=== PATIENT | female | born 1960 | race Caucasian/White ===

== ENCOUNTER 2020-03-02 03:05 | Outpatient (CLI) | payer BC, SELFPAY ==
[2020-03-02 07:59] LABS: Hemoglobin A1C 8.3 % (<5.7)
== END 2020-03-02 03:25 ==
DX: E11.9 Type 2 diabetes mellitus without complications (principal)
CPT/HCPCS: 36415; 83036

== ENCOUNTER 2022-12-26 06:40 | Observation (INO) | payer BC, SELFPAY ==
--- NOTE | 2022-12-26 07:00 | DI.CT_ITS ---
Exam(s) CT BRAIN NECK CTA EXAM: CT BRAIN NECK CTA CLINICAL HISTORY: L SIDED WEAKNESS,STROKE LIKE SYMPTOMS. TECHNIQUE: Imaging Protocol: Axial CT angiography was performed with multi-slice acquisition and mu lti-planar and/or 3D reconstructions. CONTRAST MATERIAL: Intravenous: Omnipaque 350 Contrast volume:80 cc COMPARISON: No exams were available for comparison FINDINGS: CTA Neck W: Aortic arch anatomy: The aortic arch anatomy is conventional and there is no significant stenosis at the origin of the great vessels off of the aortic arch. No intimal flap evident. Anterior circulation: Both common carotid arteries ascend with normal luminal diameters. At the level the carotid bulbs and proximal internal carotid arteries there is minimal if any signifi cant plaque without hemodynamically significant stenosis evident. The internal carotid arteries are patent in the upper neck although both are quite tortuous in the up per neck prior to entering the skull base-carotid canals Posterior circulation: Both vertebral arteries originate in conventional fashion off of the subclavian arteries and there is no obvious stenosis at the origin of the vertebral arteries. Both vertebral arteries are patent in the foramen transverse area. The right vertebral artery is dom inant. At the skull base the basilar artery is formed by contributions from both vertebral arteries, right l arger than left. Basilar artery is uniformly thin vessel. CTA Brain W: Anterior circulation: Both internal carotid arteries are patent in the skull base-carotid canals as well as within the cave rnous sinuses. The supraclinoid aspects of the ICAs are patent. Both A1 segments are patent as are the anterior cer ebral arteries and there is no evidence of aneurysm at the level of the anterior communicating artery . Both middle cerebral arteries are patent with no evidence of significant stenosis nor intraluminal th rombus. There also no aneurysms of these vessels. Posterior circulation: Thin basilar artery ascends and distally gives offs thin superior cerebellar and posterior cerebral a rteries. There are thin posterior communicating arteries evident on both sides the emxmml-ze-Rnbthu. There is no evidence of aneurysm at the tip of the basilar artery nor elsewhere in the uabryz-ac-Izff is. CT BRAIN: There is no evidence of intracranial hemorrhage, mass effect, or shift of midline structures. There are no extra-axial fluid collections. Ventricles are not enlarged or shifted. There are no ring enh ancing lesions in the brain and no abnormal meningeal enhancement. IMPRESSION: 1. Patent carotid arteries in the neck. No hemodynamically significant stenosis. However, both inte rnal carotid arteries are quite tortuous in the upper neck prior to entering the skull base-carotid c anals. 2. Patent vertebral arteries. No occlusion or dissection. 3. Patent intracranial arteries. Thin posterior circulation vessels which is probably developmental. 4. No ring enhancing lesions in the brain and no abnormal meningeal enhancement. No evidence of intr acranial hemorrhage. Discussed with ER physician RADIATION DOSE DELIVERED: Total DLP DATA REPOSITORY: All CT scans at this facility are submitted to the National Radiology Data Registry (NRDR) Dose Index Registry (DIR) with the [employer] (A[employer]). RADIATION OPTIMIZATION: All CT scans at this facility use at least one of these dose optimization te chniques: automated exposure control; mA and/or kV adjustment per patient size (includes targeted exa ms where dose is matched to clinical indication); or iterative reconstruction.
--- NOTE | 2022-12-26 08:45 | DI.MRI_ITS ---
Exam(s) MR BRAIN WO EXAM: MR BRAIN WO CLINICAL HISTORY: L arm weakness TECHNIQUE: Multiplanar multisequence MRI of the brain was performed. COMPARISON: No exams were available for comparison FINDINGS: CEREBRAL PARENCHYMA: There is no evidence of intracranial hemorrhage, mass effect, or shift of midline structures. There are no extra-axial fluid collections. Ventricles are not enlarged or shifted. There is no significant focal signal abnormality in the cerebellar hemispheres nor within the michael, m idbrain, and thalami. However, there is a small focus of white matter signal abnormality in the right parietal lobe. This also exhibits restricted diffusion on DWI and therefore consistent with acute ischemic event. This m easures approximately 7 x 5 mm. PITUITARY GLAND: No mass nor parasellar abnormality. No obvious abnormality in the cavernous sinuses. FLOW VOIDS: The expected flow void are noted. No evidence of obvious aneurysm nor obvious vascular ma lformation. PARANASAL SINUSES: The visualized paranasal sinuses appear unremarkable. No obvious finding ORBITS: No obvious findings. IMPRESSION: Findings are consistent small area of acute nonhemorrhagic infarct in the right parietal lobe. Area of restricted diffusion at this level measures approximately 7 x 5 mm. No significant mass effect at this time. Discussed by phone with ER physician and hospitalist DATA REPOSITORY:
--- NOTE | 2022-12-26 08:55 | W.EDPROG ---
Date of service: 12/26/22 Time of Service: 07:30 Medical Decision Making I received signout at 7 AM. This was during downtime and EMR was not available. Please see the paper record. I have seen and examined the patient. She developed left arm weakness last night at about 7:30 PM but went back to bed, she awoke this morning with continued left arm weakness and positive pronator drift on initial exam but with outside the window for thrombolytics. I have discussed the CT findings with the radiologist who sees no large vessel occlusion. The radiologist recommended a noncontrast MRI of the brain. I updated the patient and have ordered the MRI. Imaging Data Radiologic Study: Imaging: MRI (Noncontrast brain) Radiologist's impression: Findings are consistent small area of acute nonhemorrhagic infarct in the right parietal lobe. Area of restricted diffusion at this level measures approximately 7 x 5 mm. No significant mass effect at this time. Radiologic Study #2: Imaging: CT Scan (CT brain neck CTA) Radiologist's impression: Impression: 1. Patent carotid arteries in the neck. No hemodynamically significant stenosis. However, both internal carotid arteries are quite tortuous in the upper neck prior to entering the skull base?carotid canals. 2. Patent vertebral arteries. No occlusion or dissection. 3. Patent intracranial arteries. Thin posterior circulation vessels which is probably developmental. 4. No ring-enhancing lesions in the brain and no abnormal meningeal enhancement. No evidence of intracranial hemorrhage. Lab Data Lab results narrative: COVID flu and RSV are negative ECG Data Attestation: I personally reviewed and interpreted this ECG (s) as follows: Prior ECG tracings: available for review Exam Narrative Exam Narrative: The patient ambulates without assistance. The patient still has mild left upper extremity weakness and very mild left lower extremity weakness. I have updated the patient on the MRI findings and the plan to admit. The patient and her voiced understanding and agreement with the plan to admit. Narrative I have seen and examined the patient. I have discussed with Dr. Dorantes hospitalist who agreed to admit the patient with the MRI pending. 9:53 AM I have added a COVID/flu/RSV which is also pending. 10:43 AM the patient's MRI demonstrates a small area consistent with a occlusive CVA of the right middle cerebral artery, which corresponds to her left upper extremity weakness. I have notified the patient and her of the MRI findings Critical Care Time Critical Care Time Critical Care Time: Yes Total Critical Care Time: 57 Attestation: This includes time at the bedside, review of old records, review of radiographs and labs and discussion with hospitalist. Discharge Plan Disposition Patient Disposition: Admit to [facility] Discharge Details Clinical Impression: Acute cerebrovascular accident (CVA) due to occlusion of right middle cerebral artery, Acute left hemiparesis Primary Care Provider: [place],Local ED Provider: Debby Delgado Home Meds and New Rx's Prescriptions: No Action venlafaxine 150 MG capsule,extended release 24hr 225 mg PO DAILY diltiazem HCl [Cardizem] 120 MG tablet 120 mg PO DAILY lisinopril 5 MG tablet 5 mg PO DAILY metformin 500 MG tablet extended release 24 hr 500 mg PO DAILY aspirin 325 MG tablet 325 mg PO DAILY Patient Comments: stopped taking per pcp calcium carbonate [Calcium 600] 600 MG tablet 600 mg PO DAILY multivitamin with minerals [Hair,Skin and Nails] 1 EACH tablet 1 ea PO DAILY cholecalciferol (vitamin D3) [Vitamin D3] 400 UNIT tablet 2,000 unit PO DAILY vitamin B complex 1 EACH capsule 1 ea PO DAILY magnesium L-lactate [Magtab] 84 MG tablet extended release 64 mg PO DAILY fish oil-fat acid [id number] [[place] 3-6-9 Triple [place]] 1,200 MG capsule 1,200 mg PO DAILY hydrocodone-acetaminophen 1 TAB tablet 1 tab PO Q6H PRN Qty: 7 0RF Patient Comments: finished rx clindamycin HCl 300 MG capsule 300 mg PO QID Qty: 20 0RF Patient Comments: finished rx Discharge Data Discharge Physician: Debby Delgado
--- NOTE | 2022-12-26 09:00 | RT.EKG_ITS ---
APPROVED REPORT Exam: Resting ECG Reason for Exam: stroke symptoms Patient Location: E HR:64 bpm ECG Measurements Heart Rate 64 AXIS ID 172 P 40 QRSd 102 QRS -13 QT 424 T 9 QTc 438 Conclusion Gender not entered, assumed to be male for purpose of ECG interpretation Sinus rhythm...normal P axis, V-rate 60- 99 Inferior infarct, old...Q >35mS, II III aVF Patient is female, NSR, low voltage, LAD, No STEMI, no previous available for comparison.
[2022-12-26] MEDS: Aspirin 81 MG CHEW (09:06)
[2022-12-26] MEDS: Normal Saline - Diluent 50 ML VIAL IJ (09:20)
[2022-12-26] MEDS: Omnipaque 350 MG/ML 500 ML BTL-Imaging package IJ (09:22)
[2022-12-26 10:59] LABS: COVID-19 PCR Negative (Negative); Influenza A PCR Negative (Negative); Influenza B PCR Negative (Negative); RSV PCR Negative (Negative)
[2022-12-26 11:01] LABS: Source Nasopharynx
[2022-12-26 11:36] LABS: Bilirubin Negative (Negative); Blood Negative (Negative); Clarity Clear (Clear); Glucose >=1000 mg/dL (Negative); Ketones 15 mg/dL (Negative); Leukocyte Esterase Negative (Negative); METHADONE URINE SCREEN Negative (Negative); Nitrite Negative (Negative); Urobilinogen 0.2 mg/dL (Up to 0.2)
[2022-12-26 11:37] LABS: *AMPHETAMINES SCREEN URINE Negative (Negative); *BARBITURATES SCREEN URINE Negative (Negative); *BENZODIAZEPINES SCREEN URINE Negative (Negative); Cannabinoids THC Negative (Negative); Cocaine Screen,Urine Negative (Negative); INR 0.9 (0.9-1.1); OPIATES URINE SCREEN Negative (Negative); Prothrombin Time 9.3 sec (9.1-11.1); Tricyclic Antidepressants Negative (Negative)
[2022-12-26 11:38] LABS: Anion Gap 9.9 mmol/L (3-11); BUN 15 mg/dL (7-18); CO2 24.1 mmol/L (21.0-32.0); CREATININE 0.7 mg/dL (0.55-1.02); Calcium 9.7 mg/dL (8.5-10.1); Chloride 103 mmol/L (98-107); Estimated GFR 98.34 (mL/min/1.73m2); Glucose 316 mg/dL (74-106); Potassium 4.1 mmol/L (3.5-5.1); Sodium 137 mmol/L (136-145)
[2022-12-26 11:39] LABS: ETHANOL BLOOD < 3.0 mg/dL (<10); Troponin I < 50 ng/L (<or=60)
[2022-12-26 11:40] LABS: Absolute Basophil Count 0.05 10^3/uL (0.0-0.2); Absolute Lymphocyte Count 1.58 10^3/uL (1.2-3.4); Absolute Monocyte Count 0.44 10^3/uL (0.1-0.8); Absolute Neutrophil Count 4.44 10^3/uL (1.2-6.7); Basophils % 0.8; Eosinophils % 1.5; HCT 43.8 % (36.0-46.0); HGB 14.4 g/dL (11.2-15.7); Immature Grans % 0.8; Lymphocytes % 23.7; MCH 29.8 pg (27.0-33.0); MCHC 32.9 % (32.0-36.0); MCV 91 fL (80-95); MPV 9.7 fL (8.0-11.0); Monocytes % 6.6; Neutrophils % 66.6; Platelet Count 309 10^3/uL (130-400); RBC 4.83 10^6/uL (3.93-5.22); RDW 12.5 % (11.7-14.6); RDW-SD 41.5 fL; WBC 6.66 10^3/uL (4.4-10.8)
[2022-12-26 11:41] LABS: Abs Immature Grans 0.05 10^3/uL (0.0-0.06)
[2022-12-26 11:43] VITALS: BP 142/86; PULSE 61; RESP 18; TEMP 36.5
[2022-12-26 11:45] VITALS: O2SAT 98
--- NOTE | 2022-12-26 11:48 | HPE_ITS ---
Date of service: 12/26/22 Time of Service: 11:48 Assessment and Plan Assessment and plan (1) Acute cerebrovascular accident (CVA) due to occlusion of right middle cerebral artery: Status: Acute Assessment and plan: Cariac US/ Echo with bubble study PT OT Lipid panel Neuro consult: Recommndation as per Dr. Harris Continue ASA 325 mg PO daily No DAPT Lipitor 80 mg PO daily HGB A1C (2) Acute left hemiparesis: Status: Acute Assessment and plan: As above (3) On deep vein thrombosis (DVT) prophylaxis: Status: Acute Assessment and plan: Lovenox (4) Atrial fibrillation: Status: Chronic Assessment and plan: History of PAF from [facility] as per Neurologist Dr. Harris. Will try to retrieve records Patient denies PAF and stated that she has not been taking the Cardizem 120 listed in her records.Telemetry in place- SR (5) Diabetes: Status: Chronic Assessment and plan: Blood sugar AC and HS with insulin ss coverage BMP in AM (6) Hypertension: Status: Chronic Assessment and plan: Patient reporting not taking lisinopril for a long time . NO Rx at this time will evaluate to maintain SBP around 160 (7) Discharge planning issues: Status: Acute Assessment and plan: Not determined yet, CM will f/u History of Present Illness History of Present Illness Chief Complaint: left sided weakness Narrative: This is a 62 yo female with a medical history of atrial fibrillation, DM II and hypertension who presented to the ED at [facility] on 12/26 with left sided arm weakness starting on 12/25 at 19:30 with added left sided leg weakness developing this morning after she woke up. In the ED she was found to have a positive pronator drift but was outside of the window for thrombolytics. Her head CT and CTA neck showed no bleed and no acute lesions, the radiologist consulted by the ED physician found no large vessel occlussion and recommended noncontrast MRI of the brain which was ordered.The findings were consistent small area of acute nonhemorrhagic infarct in the right parietal lobe. Area of restricted diffusion at this level measures approximately 7 x 5 mm; without significant mass effect at this time. Lab values in the ED were unremarkable except for a glucose of 316, urine ketones 15. The patient received a total of 324 mg of oral aspirin. The hosptalist was contacted and the patient was admitted for evaluation left-sided hemiparesis, CVA Review of Systems All systems reviewed & are unremarkable except as noted in HPI and below Constitutional Constitutional: Denies body ache(s), Denies chills, Denies daytime sleepiness, Denies difficulty sleeping, Denies fatigue, Denies fever(s), Denies frequent falls, Denies malaise, Denies night sweats and Reports weakness Eyes Eyes: Denies blind spots, Denies blurry vision, Denies change in vision, Denies diplopia, Denies floaters, Denies loss of peripheral vision, Denies loss of vision, Denies other visual disturbances and Denies eye pain ENT Ears, Nose, Mouth, and Throat: Denies abnormal hearing, Denies change in voice, Denies dysphagia, Denies vertigo, Denies dizziness and Denies facial pain Cardiovascular Cardiovascular: Denies chest pain, Denies chest pain at rest, Denies chest pain with activity, Denies syncope, Reports leg edema, Denies palpitations and Denies dyspnea Respiratory Respiratory: Denies chest congestion, Denies cough, Denies hemoptysis and Denies dyspnea Gastrointestinal Gastrointestinal: Denies abdominal pain, Denies belching, Denies melena, Denies hematochezia, Denies change in bowel habits, Denies constipation and Denies dysphagia Genitourinary Genitourinary: Denies hematuria and Denies difficulty voiding Musculoskeletal Musculoskeletal: Reports abnormal gait, Reports muscle weakness and Reports other (Feels that the ground feels like grass under her left foot when ambulating) Integumentary/Breasts Skin/Breast: Reports system reviewed and no additional complaints, except as documented, Denies sores and Denies wounds Neurologic Neurologic: Denies abnormal hearing, Reports abnormal gait, Denies behavioral changes, Denies burning sensations, Denies confusion, Denies vertigo, Denies dizziness, Denies syncope, Denies frequent falls, Reports lack of coordination, Reports localized weakness, Denies loss of vision, Denies memory loss, Reports sensory deficit and Reports weakness Psychiatric Psychiatric: Denies behavioral changes, Denies confusion and Denies memory loss Endocrine Endocrine: Denies fatigue and Denies palpitations Hematologic/Lymphatic Hematologic/Lymphatic: Denies easy bleeding and Denies easy bruising PFSH All Active Problems (Updated 12/26/22 @ 18:50 by Rosanna Quinones APRN) Diabetes (Chronic) Discharge planning issues (Acute) Hypertension (Chronic) Atrial fibrillation (Chronic) On deep vein thrombosis (DVT) prophylaxis (Acute) Acute cerebrovascular accident (CVA) due to occlusion of right middle cerebral artery (Acute) Acute left hemiparesis (Acute) Social History Smoking/Tobacco Use Status: Never Smoking risk assessment performed?: Yes Drug use: Never Housing: house Additional Social history: see downtime paperwork Meds Allergies and Home Medications Allergies Allergy/AdvReac Type Severity Reaction Status Date / Time Penicillins Allergy Severe Anaphylaxsi Unverified 12/26/22 11:03 s oxycodone [Oxycodone] AdvReac Intermediate Nausea Unverified 12/26/22 11:03 avacodo Allergy Mild Skin Rash Uncoded 12/26/22 11:03 Home Medications Medication Instructions Recorded Confirmed Type empagliflozin 10 mg tablet 10 mg PO DAILY 12/26/22 12/26/22 History (Jardiance) venlafaxine 225 mg tablet,extended 225 mg PO DAILY 12/26/22 12/26/22 History release 24 hr Exam Narrative Exam Narrative: Constitutional The patient is lying in bed comfortable and cooperative during the interview. The the patient sits up at the edge of the bed The patient is well groomed without acute distress and has obese body habitus HENMT: Head is atraumatic, normocephalic, no lymphadenopathy. Facial structures with normal appearance- symmetrical, no droop in her smile Eyes: Well aligned, intact ROM Neck: Normal ROM, no meningeal signs Neuro:alert and oriented to self, person, place, time and situation. No neurological focal deficit, PERRLA 4-5 Chest:Chest is symmetrical and normal appearance Resp: Normal respiratory pattern, speaks in full sentences, unlabored breathing, clear lung bilaterally Cardio:Tele SR regular rhythm, S1, S2, no murmur, capillary refill<3 sec., bilateral radial and dorsalis pedis pulses are positive, palpable GI: Abdomen is not distended, soft and non tender, bowel sounds are present : Negative Costovertebral angle tenderness, no bladder distension Back/spine/Pelvis: No back tenderness, normal alignment Integumentary: No skin lesions or rash Extremities: strength 4/5 to left lower and upper extremities, registered nurse behavioral health L< registered nurse behavioral health R Psych: RASS 0, congruent mood and normal affect. Neuro Cranial Nerves: sense of smell intact, PERRL, accommodation normal, EOM intact bilaterally, no nystagmus, facial strength normal, tongue midline, gag reflex normal, hearing normal, able to rotate head bilaterally and able to elevate shoulders bilaterally Cognition: normal cognition Speech: speech normal Gait: normal gait Motor: strength 5/5 throughout (right side ) and no pronator drift Results Labs 12/26/22 07:05 12/26/22 07:05 Labs: Laboratory Results - last 24 hr 12/26/22 12/26/22 07:05 10:14 WBC 6.66 RBC 4.83 Hgb 14.4 Hct 43.8 MCV 91 MCH 29.8 MCHC 32.9 RDW 12.5 Plt Count 309 MPV 9.7 Immature Gran % 0.8 Neutrophils % 66.6 Lymphocytes % 23.7 Monocytes % 6.6 Eosinophils % 1.5 Basophils % 0.8 Nucleated RBC % 0.0 Absolute Neutrophils 4.44 Absolute Lymphocytes 1.58 Absolute Monocytes 0.44 Absolute Eosinophils 0.10 Absolute Basophils 0.05 PT 9.3 INR 0.9 APTT 24.0 Sodium 137 Potassium 4.1 Chloride 103 Carbon Dioxide 24.1 Anion Gap 9.9 BUN 15 Creatinine 0.7 Est GFR (CKD-EPI 2020) 98.34 Glucose 316 H Calcium 9.7 Magnesium 2.0 Troponin I < 50 Urine Color Yellow Urine Clarity Clear Urine pH 5.0 Ur Specific [place] 1.010 Urine Protein Negative Urine Ketones 15 H Urine Blood Negative Urine Nitrite Negative Urine Bilirubin Negative Urine Urobilinogen 0.2 Ur Leukocyte Esterase Negative Urine Glucose >=1000 H Urine Opiates Screen Negative Urine Methadone Screen Negative Ur Barbiturates Screen Negative Ur Tricyclics Screen Negative Ur Amphetamines Screen Negative U Benzodiazepines Scrn Negative Urine Cocaine Screen Negative Ur THC Screen Negative Ethyl Alcohol < 3.0 COVID-19 Source Nasopharynx SARS-CoV-2 (PCR) Negative Influenza Type A (PCR) Negative Influenza Type B (PCR) Negative RSV (PCR) Negative Last Vital Signs Temp 36.5 C 12/26/22 11:43 Pulse 61 12/26/22 11:43 Resp 18 12/26/22 11:43 BP 142/86 H 12/26/22 11:43 Time Spent Time spent with Patient: >75 minutes Time was spent: preparing to see the patient(eg.review tests), obtaining and/or reviewing separately otained hiistory, ordering medications,tests, procedures, referring, communicating with other health personal care aid, indepentently interpreting results, counseling the patient and care coordination
[2022-12-26] MEDS: Normal Saline Flush 10 ML SYR IVP (12:06)
[2022-12-26] MEDS: Atorvastatin 40 MG TAB 80 MG PO (12:06)
[2022-12-26 12:24] LABS: Calculated LDL 191 mg/dL (<100); Cholesterol 294 mg/dL (<200); HDL Cholesterol 70 mg/dL (40-60); Triglyceride 167 mg/dL (<150)
--- NOTE | 2022-12-26 12:57 | W.NEUROCONSU ---
Date of service: 12/26/22 Time of Service: 12:57 Assessment and Plan Assessment and plan (1) Atrial fibrillation: Status: Chronic (2) Stroke due to embolism of middle cerebral artery: Status: Acute (3) Acute left hemiparesis: Status: Acute Assessment and plan: Ms. Jensen is admitted with right front-parietal cortical stroke manifested by L arm>leg weakness, etiology most likely embolic given history of prior atrial fibrillation, but further work-up pending. Work-up: -Telemetry with 30 day extended playground monitor at discharge -A1c -Lipid panel Medications: -it is a very small stroke, but I think risk of bleeding is still there; so continue ASA 325mg daily; on 01/02/23, stop ASA and instead start apixaban 5mg BID; ADRs discussed with her, bleeding monitoring, trauma precautions, etc -atrovastatin 80mg daily for secondary stroke prevention Other: -Allow permissive hypertension -Physical therapy for leg weakness, gait training -Occupation therapy for upper extremity weakness, activities of daily living She should follow-up in the neurology clinic in 6-8 weeks. History of Present Illness History of Present Illness Chief Complaint: stroke Narrative: Handedness: right. Ms. Jensen is a 62 year-old with hypertension, hyperlipidemia, DM2, insomnia, prior atrial fibrillation. Last night 12/25/22, Ms. Jensen got up after laying down around 1930 at which she noted her left arm seemed weak. She thought that it was from laying on it and later went to bed. This am after waking, she noted the left arm was still weak and also noted slight weakness in the left leg. She had no numbness or speech changes. She presented to the [facility] ER and underwent the work-up as below. She was treated with 325mg PO aspirin. She is not on an anti-platelet at baseline. Per PCP records, last seen Nov 2021), she was supposed to be on a statin but has not been taking one. She was also started on atorvastatin 80mg daily. [place] living [place], she apparently was seen for emergent care in Feb 2012 for afib, presumably with RVR. Per prior records, she was converted with medications previously on diltiazem, metoprolol, magnesium, and coumadin. Her EKG here was in SR. Work-up: -MRI brain w/o (12/26/22): Small area of acute ischemia in the right fronto-parietal cortex. Empty sella. I reviewed these images personally and this is my personal interpretation. -CTA head/neck (12/26/22): Small distal basilar a and bilateral bomb loader - developmental?. tortuous bilateral ICAs. No significant findings. I reviewed these images personally and this is my personal interpretation. -TTE (12/26/22): EF 57%, no wall motion abnormalities. LA normal. +PFO. -LDL (12/26/22): 191 -A1c: pending Review of Systems All systems reviewed & are unremarkable except as noted in HPI and below PFSH All Active Problems (Updated 12/26/22 @ 21:02 by Dariela Garcia MD) Stroke due to embolism of middle cerebral artery (Acute) Diabetes (Chronic) Discharge planning issues (Acute) Hypertension (Chronic) Atrial fibrillation (Chronic) On deep vein thrombosis (DVT) prophylaxis (Acute) Acute cerebrovascular accident (CVA) due to occlusion of right middle cerebral artery (Acute) Acute left hemiparesis (Acute) Medical History (Updated 12/26/22 @ 21:02 by Dariela Garcia MD) Depression Insomnia Hyperlipemia Family History (Updated 12/26/22 @ 21:02 by Dariela Garcia MD) Other Adopted Social History Smoking/Tobacco Use Status: Never Smoking risk assessment performed?: Yes Drug use: Never Housing: house Additional Social history: see downtime paperwork Visit Medication and Allergies Active Medications Generic Name Dose Route Start Last Admin Trade Name Freq PRN Reason Stop Dose Admin Albuterol/Ipratropium 3 ml 12/26/22 09:52 Albuterol/Ipratropium 3 Ml Upd Vial UPD Q6H PRN PRN Aspirin 325 mg 12/27/22 08:30 Aspirin 325 Mg Tab PO DAILY BOBBI Atorvastatin Calcium 80 mg 12/27/22 20:00 Atorvastatin 40 Mg Tab PO QPM [facility] Docusate Sodium 100 mg 12/26/22 14:00 Docusate Sodium 100 Mg Cap PO TID [facility] Enoxaparin Sodium 40 mg 12/27/22 08:30 Enoxaparin 40 Mg/0.4 Ml Syr SC DAILY BOBBI IV Miscellaneous Supplies 1 each 12/26/22 10:00 Iv Access IV DIRECTED BOBBI Polyethylene Glycol 17 gm 12/26/22 09:52 Polyethylene Glycol 3350 17 Gm Packet PO DAILY PRN PRN Constipation Sodium Chloride 0 ml 12/26/22 09:52 12/26/22 12:06 Normal Saline Flush 10 Ml Syr IVP 10 ml PRN PRN Administration Venlafaxine HCl 225 mg 12/27/22 08:30 Venlafaxine 75 Mg Capcr PO DAILY BOBBI Allergies Penicillins Allergy (Severe, Unverified 12/26/22 11:03) Anaphylaxsis oxycodone [Oxycodone] Adverse Reaction (Intermediate, Unverified 12/26/22 11:03) Nausea avacodo Allergy (Mild, Uncoded 12/26/22 11:03) Skin Rash Exam Narrative Exam Narrative: Physical Exam: Gen: Patient of apparent stated age, NAD Head and face: no facial or cranial abnormalities Neck: Supple, no meningismus, no occipital tenderness CV: + S1, S2, RRR, no murmur Resp: CTA B/L Abd: soft, nontender, nondistended Ext: No edema. No clubbing or cyanosis. No bony deformity. Neuro Exam: Language: fluency, naming, repetition, and comprehension intact; Mental Status: AAOx3, current events intact, fund of knowledge intact; Speech: no dysarthria Cranial nerves: Funduscopy: not performed CN II: visual arriola intact CN III, IV, : extraocular movements intact, no nystagmus, pupils symmetric and reactive to light CN V: face sensation intact to LT and PP CN VII: no facial asymmetry noted CN VIII: hearing intact bilaterally CN IX, X: palate rises symmetrically CN XI: trapezius/SCM 5/5 bilaterally CN XII: protrudes tongue symmetrically Sensory: intact to LT, PP, vibration, and joint position in all extremities, absent Romberg Motor: bulk and tone intact. Fine motor movements slightly reduced on the left with subtle L pronator drift. Strength 5/5 throughout the RUE and RLE. Subtle weakness in the LUE and even less so in the LLE. Reflexes: 1+/hyporeflexic throughout at the biceps, triceps, brachioradialis, patella, and achilles tendons bilaterally; toes down going bilaterally; Coordination: FTN and HTS intact bilaterally Gait: not seen Results Last Vital Signs Temp 97.7 F 12/26/22 11:43 Pulse 61 12/26/22 11:43 Resp 18 12/26/22 11:43 BP 142/86 H 12/26/22 11:43 Pulse Ox 98 12/26/22 11:45 Labs 12/26/22 07:05 12/26/22 07:05 Labs: Laboratory Results - last 24 hr 12/26/22 12/26/22 07:05 10:14 WBC 6.66 RBC 4.83 Hgb 14.4 Hct 43.8 MCV 91 MCH 29.8 MCHC 32.9 RDW 12.5 Plt Count 309 MPV 9.7 Immature Gran % 0.8 Neutrophils % 66.6 Lymphocytes % 23.7 Monocytes % 6.6 Eosinophils % 1.5 Basophils % 0.8 Nucleated RBC % 0.0 Absolute Neutrophils 4.44 Absolute Lymphocytes 1.58 Absolute Monocytes 0.44 Absolute Eosinophils 0.10 Absolute Basophils 0.05 PT 9.3 INR 0.9 APTT 24.0 Sodium 137 Potassium 4.1 Chloride 103 Carbon Dioxide 24.1 Anion Gap 9.9 BUN 15 Creatinine 0.7 Est GFR (CKD-EPI 2020) 98.34 Glucose 316 H Calcium 9.7 Magnesium 2.0 Troponin I < 50 Triglycerides 167 H Total Cholesterol 294 H LDL Cholesterol, Calc 191 H HDL Cholesterol 70 Urine Color Yellow Urine Clarity Clear Urine pH 5.0 Ur Specific [place] 1.010 Urine Protein Negative Urine Ketones 15 H Urine Blood Negative Urine Nitrite Negative Urine Bilirubin Negative Urine Urobilinogen 0.2 Ur Leukocyte Esterase Negative Urine Glucose >=1000 H Urine Opiates Screen Negative Urine Methadone Screen Negative Ur Barbiturates Screen Negative Ur Tricyclics Screen Negative Ur Amphetamines Screen Negative U Benzodiazepines Scrn Negative Urine Cocaine Screen Negative Ur THC Screen Negative Ethyl Alcohol < 3.0 COVID-19 Source Nasopharynx SARS-CoV-2 (PCR) Negative Influenza Type A (PCR) Negative Influenza Type B (PCR) Negative RSV (PCR) Negative
--- NOTE | 2022-12-26 13:35 | IN_ITS ---
PT Notes Visit Reasons: Rule out CVA/TIA Physical Therapy Inpatient Initial Evaluation Date: 12/26/2022 Referring Doctor: Rosanna Quinones NP PT Orders: PT CONSULT: Fall Safety Assessment Precautions: Standard. Activity as tolerated. Patient Profile/Admitting Diagnosis: Mary is a 62-year-old right hand dominant female who presented to the ED on 01/05/2023 due to mild upper extremity and lower extremity weakness on the left side. Patient is admitted for management of acute cerebrovascular accident with a right middle cerebral artery affectation, acute left hemiparesis, AF, and hypertension. PMHX: All Active Problems (Updated 12/26/22 @ 11:50 by Rosanna Quinones APRN) Discharge planning issues (Acute) Hypertension (Chronic) Atrial fibrillation (Chronic) On deep vein thrombosis (DVT) prophylaxis (Acute) Acute cerebrovascular accident (CVA) due to occlusion of right middle cerebral artery (Acute) Acute left hemiparesis (Acute) Social History/Home Situation: Lives with in a private home with 3 steps to enter with rails on both sides. 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 Independent with all aspects of ADLs prior to admission. Equipment Owned/DME: None Subjective: Feels that weakness in her L upper and lower extremities are starting to resol ve. Reports earlier today that her left leg felt spongy but issue is starting to minimize. Denies headache, chest pain, and lightheadedness throughout session. Has had no falls. Did complain of left knee pain with walking which she tattes may be due to an arthritic condition which she has had prior to coming here. Reported some minimal shortness of breath that resolved with rest. Objective: General Observation: Seated at edge of bed. No lines. Mental Status: Alert and oriented as to person, place, time, and purpose. Able to pay attention, focus, and respond appropriately. Pain: Denies Vital Signs: Closely monitored by nursing staff ROM: Right Upper Extremity: Shoulder Flexion WFL. Shoulder abduction WFL. Elbow flexion WFL. Wrist flexion WFL. Functional opening and closing of hand WFL. Left Upper Extremity: Shoulder Flexion WFL. Shoulder abduction WFL. Elbow flexion WFL. Wrist flexion WFL. Functional opening and closing of hand WFL. Right Lower Extremity: Hip flexion WFL. Hip abduction WFL. Knee flexion WFL. Ankle dorsiflexion WFL. Ankle plantarflexion WFL. Left Lower Extremity: Hip flexion WFL. Hip abduction WFL. Knee flexion WFL. Ankle dorsiflexion WFL. Ankle plantarflexion WFL. Strength: Right Upper Extremity: Shoulder flexors 5/5. Shoulder abductors 5/5. Elbow flexors 5/5. Elbow extensors 5/5. Anthropometrist strong. Left Upper Extremity: Shoulder flexors 4/5. Shoulder abductors 4/5. Elbow flexors 4/5. Elbow extensors 4/5. Anthropometrist relatively weaker thna the R. Right Lower Extremity: Hip flexors 5/5. Hip abductors 5/5. Knee flexors 5/5. Knee extensors 5/5. Ankle dorsiflexors 5/5. Ankle plantarflexors 5/5. Left Lower Extremity: Hip flexors 4/5. Hip abductors 4/5. Knee flexors 4/5. Knee extensors 4/5. Ankle dorsiflexors 4/5. Ankle plantarflexors 4/5. Bed Mobility/Transfers: Rolling independent Supine to sit independent Sit to supine independent Sit to stand independent Stand to sit independent Gait: Facilitated safe and correct performance of level surface ambulation covering a distance of 350 feet with step through heel toe gait pattern on B LE. Supervision only. Noted minimal shortness of breath at end of activity. With vital signs of 133 over 87 mmHg, heart rate of 110 bpm, and oxygen saturation of 91% on RA. No path deviation. Patient reported at baseline ability to walk. No report of visual limitations throughout the walk. Stairs: Guided patient with safe and correct negotiation of 6 x 4-inch steps and 4 x 6- inch steps while holding onto B rails with [id number] pattern with no need for any physical assistance. Supervision only. Balance: Static Sitting: Normal Dynamic Sitting: Normal Static Standing: Good Dynamic Standing: Good Special Tests: Mobility Limitations Standardized Measure [facility]-P[facility] 6 clicks Basic Mobility Inpatient Short Form: Raw Score: 24 CMS Score: 0% deficit Romberg Test: Negative 4-Stage balance Test: Feet together 10 seconds Semitandem R foot leading 10 seconds Semitandem L foot leading 10 seconds Full tandem 5 seconds One-legged stance 5 seconds Informed Consent/Education: Patient was instructed in purpose of PT consult and plan of care. Agreeable to proceed with established PT POC to achieve personal goals. ASSESSMENT: L UE/LE hemiparesis that did not greatly affect ability perform mobility ADLs for this assessment. Balance mildly impaired but does not need use of assistive device. Safety awareness intact. Patient presents with clinical signs and symptoms consistent with current/admitting diagnoses that have resulted to mobility limitations, gait instability, generalized weakness, and overall ADL decline as demonstrated by the following impairment level findings: 1. Decreased strength to L UE/ LE major muscle groups 2. Impaired standing balance Impairments are contributing to the following functional limitations: 1. Increased completion time for mobility ADL performance Patient is assessed as a 57107 moderate complexity based on the following: History: 62-year-old female with past medical history as indicated above Examination: Demonstrable impairment in strength, balance, and mobility level with underlying impairments and functional limitations as exhibited above as well as deficit score of 0% utilizing the [facility] Mobility Inpatient Short Form Presentation: Evolving Decision Makin moderate complexity Goals: Goals X1 week 1. Independent gait on level surface with use of no AD for at least 1000 feet without report of pain nor dyspnea 2. Independent stair negotiation while holding onto B rails for at least 3 steps without report of pain nor dyspnea 3. Independent with home exercise program 4. Normal static and dynamic standing balance/tolerance Plan of Care/Treatment Plan: 1-2x/day, 7 days/week x 1 week. Plan of care has been reviewed with the [facility]ION[facility] TRANSFER LIAISON providing the service under Physical Therapy direction. Initiate Physical Therapy intervention for pain management as needed, strengthening, bed mobility, transfers, gait, stairs, balance training, and use of assistive device. DISCHARGE RECOMMENDATIONS: [X] Home with no service. Home when medically cleared by hospitalist. [] Home with services [specify] [] Home with outpatient PT [] [] SNF for continued rehabilitation [] [] Nursing Home Care [] [] SNF versus LTC based on ability to participate and progress [] TREATMENT CODE/TIME: 47866 x 25 minutes for 1 unit beginning at 13:35 PM. Thank you for the opportunity to participate in the care of this patient. Trista Soto PT, DPT, CLT [facility] [place], [place]
[2022-12-26] MEDS: Docusate Sodium 100 MG CAP PO (15:11)
[2022-12-26 15:18] VITALS: BP 129/77; PULSE 69; RESP 20; TEMP 36.7; O2SAT 93
--- NOTE | 2022-12-26 16:54 | NUR.NOTE ---
Nursing Note:this pt was admitted during [facility] downtime, please look in paper charts for any missing information
[2022-12-26 19:48] VITALS: BP 148/81; PULSE 66; RESP 18; TEMP 37; O2SAT 96
[2022-12-27] VITALS (7 sets, daily range): BP systolic 114–142; BP diastolic 73–88; PULSE 64–106; RESP 16–18; TEMP 36.3–37.2; O2SAT 93–95
[2022-12-27 06:03] LABS: Hemoglobin A1C > 13.0 % (<5.7)
[2022-12-27 07:56] LABS: Abs Immature Grans 0.02 10^3/uL (0.0-0.06); Absolute Basophil Count 0.04 10^3/uL (0.0-0.2); Absolute Eosinophil Count 0.11 10^3/uL (0.0-0.7); Absolute Lymphocyte Count 1.33 10^3/uL (1.2-3.4); Absolute Monocyte Count 0.34 10^3/uL (0.1-0.8); Absolute Neutrophil Count 3.39 10^3/uL (1.2-6.7); Basophils % 0.8; Eosinophils % 2.1; HCT 44.1 % (36.0-46.0); HGB 14.3 g/dL (11.2-15.7); Immature Grans % 0.4; Lymphocytes % 25.4; MCH 29.7 pg (27.0-33.0); MCHC 32.4 % (32.0-36.0); MCV 92 fL (80-95); MPV 9.9 fL (8.0-11.0); Monocytes % 6.5; Neutrophils % 64.8; Platelet Count 292 10^3/uL (130-400); RBC 4.82 10^6/uL (3.93-5.22); RDW 12.6 % (11.7-14.6); RDW-SD 42.1 fL; WBC 5.23 10^3/uL (4.4-10.8)
[2022-12-27 08:13] LABS: Anion Gap 12.2 mmol/L (3-11); BUN 15 mg/dL (7-18); CO2 24.8 mmol/L (21.0-32.0); CREATININE 0.8 mg/dL (0.55-1.02); Calcium 9.6 mg/dL (8.5-10.1); Chloride 104 mmol/L (98-107); Estimated GFR 83.78 (mL/min/1.73m2); Glucose 261 mg/dL (74-106); Magnesium 2.2 mg/dL (1.8-2.4); Potassium 4.3 mmol/L (3.5-5.1); Sodium 141 mmol/L (136-145)
[2022-12-27] MEDS: Insulin Aspart 300 UNITS/3 ML PEN SC ×3 (08:42→17:03)
[2022-12-27] MEDS: Venlafaxine 75 MG CAPCR 225 MG PO (08:44)
[2022-12-27] MEDS: Empaglifozin 10 MG TAB PO (08:44)
[2022-12-27] MEDS: Aspirin 325 MG TAB PO (08:44)
[2022-12-27] MEDS: Docusate Sodium 100 MG CAP PO (08:45)
--- NOTE | 2022-12-27 09:45 | W.PM.PROGNOT ---
Date of Service Date of service: 12/27/22 Time of Service: 09:45 Assessment and Plan Assessment and plan (1) Acute cerebrovascular accident (CVA) due to occlusion of right middle cerebral artery: Status: Acute Assessment and plan: Cariac US/ Echo with bubble study: Questionable ASD or patent foramen oval , but history of A-Fib most concerning for ischemic stroke PT: No home service at discharge.Normal static and dynamic standing balance/tolerance OT: Lipid panel Neuro consult: Recommndation as per Dr. Harris Continue ASA 325 mg PO daily No DAPT Lipitor 80 mg PO daily HGB A1C 13.0 , DM consult in place (2) Acute left hemiparesis: Status: Acute Assessment and plan: As above but improving (3) On deep vein thrombosis (DVT) prophylaxis: Status: Acute Assessment and plan: Lovenox (4) Atrial fibrillation: Status: Chronic Assessment and plan: History of PAF from [facility] as per Neurologist Dr. Harris. Will try to retrieve records Patient denies PAF and stated that she has not been taking the Cardizem 120 listed in her records.Telemetry in place- SR Telemetry in NSR (5) Diabetes: Status: Chronic Assessment and plan: Continue Blood sugar AC and HS with insulin ss coverage, A1C >13, DM consult in progress. Glucs 222-275 BMP in AM (6) Hypertension: Status: Chronic Assessment and plan: Patient reporting not taking lisinopril for a long time . NO Rx at this time will evaluate to maintain SBP around 160 BP remains controlled (7) Discharge planning issues: Status: Acute Assessment and plan: Not determined yet, CM will f/u Subjective Subjective Patient reports: no new complaints, feels better, tolerating liquids well, tolerating a regular diet, voiding w/o difficulty, flatus, bowel movement and afebrile; denies diarrhea, blood in stool, nausea, vomiting or shortness of breath Exam Narrative Exam Narrative: Constitutional The patient is lying in bed comfortable and cooperative during the interview. The the patient sits up at the edge of the bed The patient is well groomed without acute distress and has obese body habitus HENMT: Head is normocephalic. Facial structures with normal appearance- symmetrical, no droop in her smile Eyes: Well aligned, intact ROM Neck: Normal ROM, no meningeal signs Neuro:alert and oriented to self, person, place, time and situation. No neurological focal deficit, PERRLA 4-5 Chest:Chest is symmetrical and normal appearance Resp: Normal respiratory pattern, speaks in full sentences, unlabored breathing, clear lung bilaterally Cardio:Tele SR regular rhythm, S1, S2, no murmur, capillary refill<3 sec., bilateral radial and dorsalis pedis pulses are positive, palpable GI: Abdomen is not distended, soft and non tender, bowel sounds are present : Negative Costovertebral angle tenderness, no bladder distension Back/spine/Pelvis: No back tenderness, normal alignment Integumentary: No skin lesions or rash Extremities: strength 4/5 to left lower and upper extremities, 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 Neuro Cranial Nerves: sense of smell intact, PERRL, accommodation normal, EOM intact bilaterally, no nystagmus, facial strength normal, tongue midline, gag reflex normal, hearing normal, able to rotate head bilaterally and able to elevate shoulders bilaterally Cognition: normal cognition Speech: speech normal Gait: normal gait Motor: strength 5/5 throughout (right side ) and no pronator drift Other: No further weakness to left leg and increased strength noticed to left upper ext. Objective Last Vital Signs Temp 36.5 C 12/27/22 07:49 Pulse 76 12/27/22 07:49 Resp 18 12/27/22 07:49 BP 127/76 12/27/22 07:49 Pulse Ox 94 12/27/22 07:49 Laboratory Results - last 24 hr 12/26/22 12/26/22 12/27/22 07:05 10:14 05:10 WBC 6.66 RBC 4.83 Hgb 14.4 Hct 43.8 MCV 91 MCH 29.8 MCHC 32.9 RDW 12.5 Plt Count 309 MPV 9.7 Immature Gran % 0.8 Neutrophils % 66.6 Lymphocytes % 23.7 Monocytes % 6.6 Eosinophils % 1.5 Basophils % 0.8 Nucleated RBC % 0.0 Absolute Neutrophils 4.44 Absolute Lymphocytes 1.58 Absolute Monocytes 0.44 Absolute Eosinophils 0.10 Absolute Basophils 0.05 PT 9.3 INR 0.9 APTT 24.0 Sodium 137 Potassium 4.1 Chloride 103 Carbon Dioxide 24.1 Anion Gap 9.9 BUN 15 Creatinine 0.7 Est GFR (CKD-EPI 2020) 98.34 Glucose 316 H Hemoglobin A1c Cancelled > 13.0 H Calcium 9.7 Magnesium 2.0 Troponin I < 50 Triglycerides 167 H Total Cholesterol 294 H LDL Cholesterol, Calc 191 H HDL Cholesterol 70 Urine Color Yellow Urine Clarity Clear Urine pH 5.0 Ur Specific [place] 1.010 Urine Protein Negative Urine Ketones 15 H Urine Blood Negative Urine Nitrite Negative Urine Bilirubin Negative Urine Urobilinogen 0.2 Ur Leukocyte Esterase Negative Urine Glucose >=1000 H Urine Opiates Screen Negative Urine Methadone Screen Negative Ur Barbiturates Screen Negative Ur Tricyclics Screen Negative Ur Amphetamines Screen Negative U Benzodiazepines Scrn Negative Urine Cocaine Screen Negative Ur THC Screen Negative Ethyl Alcohol < 3.0 COVID-19 Source Nasopharynx SARS-CoV-2 (PCR) Negative Influenza Type A (PCR) Negative Influenza Type B (PCR) Negative RSV (PCR) Negative 12/27/22 07:15 WBC 5.23 RBC 4.82 Hgb 14.3 Hct 44.1 MCV 92 MCH 29.7 MCHC 32.4 RDW 12.6 Plt Count 292 MPV 9.9 Immature Gran % 0.4 Neutrophils % 64.8 Lymphocytes % 25.4 Monocytes % 6.5 Eosinophils % 2.1 Basophils % 0.8 Nucleated RBC % 0.0 Absolute Neutrophils 3.39 Absolute Lymphocytes 1.33 Absolute Monocytes 0.34 Absolute Eosinophils 0.11 Absolute Basophils 0.04 PT INR APTT Sodium 141 Potassium 4.3 Chloride 104 Carbon Dioxide 24.8 Anion Gap 12.2 H BUN 15 Creatinine 0.8 Est GFR (CKD-EPI 2020) 83.78 Glucose 261 H Hemoglobin A1c Calcium 9.6 Magnesium 2.2 Troponin I Triglycerides Total Cholesterol LDL Cholesterol, Calc HDL Cholesterol Urine Color Urine Clarity Urine pH Ur Specific [place] Urine Protein Urine Ketones Urine Blood Urine Nitrite Urine Bilirubin Urine Urobilinogen Ur Leukocyte Esterase Urine Glucose Urine Opiates Screen Urine Methadone Screen Ur Barbiturates Screen Ur Tricyclics Screen Ur Amphetamines Screen U Benzodiazepines Scrn Urine Cocaine Screen Ur THC Screen Ethyl Alcohol COVID-19 Source SARS-CoV-2 (PCR) Influenza Type A (PCR) Influenza Type B (PCR) RSV (PCR) Time Spent with Patient Time Spent with Patient: >50 minutes Time was spent: preparing to see the patient(eg.review tests), ordering medications,tests, procedures, referring, communicating with other health manager intensive care unit, indepentently interpreting results, counseling the patient and care coordination
[2022-12-27] MEDS: Enoxaparin 40 MG/0.4 ML SYR SC (10:11)
--- NOTE | 2022-12-27 10:41 | PDOC.CMIN ---
Date of service: 12/27/22 Time of Service: 10:41 Care Management Initial Assmt Initial Assessment REASON FOR HOSPITALIZATION:: CVA PREVIOUS FUNCTIONAL STATUS/SOCIAL/FAMILY SUPPORTS:: Camelia lives in [place] with her Awais. They do not have any children but do have 2 dogs. 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 She shared that she has worked in a similar capacity in other camps throughout the [facility] for the past 30 years. Camelia is independent at baseline and does not receive any community services. CURRENT FUNCTIONAL STATUS:: Camelia was sitting up in bed visiting with her Awais when CM met with her. She was very pleasant and engaged easily with CM. Camelia informed CM that she is feeling much better. She was able to ambulate without any assistance and shared that her arm feels stronger today. She verbalized that she would like to be discharged home. The provider has indicated that Camelia would likely be discharged tomorrow. ADVANCE DIRECTIVES:: none Has patient been provided with info about the portal/API?: Yes Did the patient sign up for the portal?: No CODE STATUS:: Full Code INSURANCE COVERAGE / FINANCIAL ISSUES:: BC/BS out of state CURRENT HOME/COMMUNITY SERVICES/EQUIPMENT:: none PRIMARY CARE PHYSICIAN:: Howie Sampson at the [facility] ([facility] in [place] POTENTIAL DISCHARGE NEEDS:: establish with new PCP PATIENT/FAMILY EDUCATION NEEDS:: Review of discharge instructions, activity, limitations, follow up plan, discuss Ask Me Three TRANSPORTATION:: via private vehicle with family PLAN:: Anticipate Camelia will be discharged home with no new services. She will follow up with neurology and cardiology and establish with a new PCP. She will transport home with her via private vehicle,. PFSH All Active Problems (Updated 12/26/22 @ 21:02 by Dariela Garcia MD) Stroke due to embolism of middle cerebral artery (Acute) Diabetes (Chronic) Discharge planning issues (Acute) Hypertension (Chronic) Atrial fibrillation (Chronic) On deep vein thrombosis (DVT) prophylaxis (Acute) Acute cerebrovascular accident (CVA) due to occlusion of right middle cerebral artery (Acute) Acute left hemiparesis (Acute) Medical History (Updated 12/26/22 @ 21:02 by Dariela Garcia MD) Depression Insomnia Hyperlipemia Family History (Updated 12/26/22 @ 21:02 by Dariela Garcia MD) Other Adopted Social History Smoking/Tobacco Use Status: Never Smoking risk assessment performed?: Yes Drug use: Never Housing: house Additional Social history: see downtime paperwork
--- NOTE | 2022-12-27 10:56 | PT.INTREAT ---
Date of service: 12/27/22 Time of Service: 10:44 PT Notes Visit Reasons: Rule out CVA/TIA Inpatient Physical Therapy Treatment Note [facility] Date: 12/27/22 PRECAUTIONS: Fall, standard, activity as tolerated. SUBJECTIVE: Patient asleep when this clinician enters. Does not respond to her name, wakes easily to light touch on dorsum of right hand. Reports feeling good and also that she feels better today than she did yesterday. OBJECTIVE: Supine in bed, dressed in hospital gown and fuzzy pajama pants. Agreeable to therapy. ? PAIN: none reported. VITALS: monitored by nursing staff. ? ? ? BED MOBILITY/TRANSFERS? Rolling L/R: independent Supine-sit: independent ? Sit-supine: independent ? Sit-stand: independent ? Stand-sit: independent ? Bed-Chair: independent ? Chair-bed: independent ? Therapeutic Exercises ([id number]): Direct one-on-one instruction in therapeutic exercises to develop strength, endurance, range of motion and flexibility. Ambulation ? Assistive Device: none ? Weight bearing: full Assist: SBA ? Distance:? 1200 feet ? Deviation: Patient walks briskly, no c/o pain or dyspnea. Good, symmetric step length, good heel strike, good toe off, no path deviation. Reduced arm swing. ? Provided skilled instruction in proper exercise performance Provided skilled manual cues to facilitate proper muscle recruitment and/or form. ASSESSMENT:? Patient tolerates therapy well, states at end of treatment that she feels great. Patient declines to do stairs, stating that she did them with the other lady yesterday. PLAN: Continue global strengthening per plan of care until patient is medically cleared for discharge. TREATMENT CODE/TIME: 11 minutes beginning at 10:44
--- NOTE | 2022-12-27 16:01 | DM INPTCON_ITS ---
Date of service: 12/27/22 Time of Service: 16:13 Diabetes Inpatient Consult Reason for Visit: routine consult - Diabetes Education DESCRIPTION/ASSESSMENT: Ms Jensen is a 62yo female admitted with acute CVA. PMH includes Diabetes, HTN DVT. current estimated nutrition needs : 1831kcals (MSJx1.2AF), 79g protein (1.2g/kg ABW), 1831mL fluid (1mL/required kcal) Currently ordered for heart healthy diet with normal consistencies. Intake good during admission. Denies any concerns with N/V/C/D. glucose sticks ordered ACHS and on sensitive sliding scale of insulin aspart for meals. Current A1C>13 and historically has been very high in her chart. Pt denies glucose monitoring at home and says she doesn't count carbohydrates, just tried to eat sensibly. Her (also with diabetes) does most of the cooking (search director at [employer]). FBG this morning was 261 and yesterday was 316. at meals, glucose has not been below 190. INTERVENTION: Will add consistent CHO to diet order to help manage glucose levels. Offered diabetes educatioan on her specific needs and CHO amounts to aim for - pt declined at this time but did take my contact info should she and her become interested in diabetes mgt visits. Would recommend 10 units of insulin glargine to help bring down chronic hyperglycemia and transition to moderate SS of insulin aspart at meals. PLAN: will monitor labs, wt, intake, and interest in diabetes education while admitted. Time Spent in Nutritional Counseling and Treatment: 15 minutes
--- NOTE | 2022-12-27 16:14 | CHAPLAIN ---
Macie was in bed when I visited. She was very pleasant, invited me to sit down, and easily engaged in a conversation. Macie found her left arm was working and thought she'd slept on it funny and the next day had difficult with her left leg and so came to the ED. She said she's had a lot tests, but has been given permission to fly later this month to visit her brother in [place] and she was relieved about that. 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 Her works at [employer], and his supervisor chlorine liquefaction, Rev. Rome Yadav from the [employer] has called Macie. She seems to be well supported by her . Macie is from [place] and is strong [employer] football fan.
[2022-12-27] MEDS: Atorvastatin 40 MG TAB 80 MG PO (19:52)
[2022-12-28 03:44] VITALS: BP 118/72; PULSE 74; RESP 18; TEMP 36.3; O2SAT 97
[2022-12-28 07:19] VITALS: BP 118/79; PULSE 76; RESP 18; TEMP 36.6; O2SAT 97
[2022-12-28] MEDS: Venlafaxine 75 MG CAPCR 225 MG PO (07:34)
[2022-12-28] MEDS: Enoxaparin 40 MG/0.4 ML SYR SC (07:35)
[2022-12-28] MEDS: Normal Saline Flush 10 ML SYR IVP (07:35)
[2022-12-28] MEDS: Empaglifozin 10 MG TAB PO (07:35)
[2022-12-28] MEDS: Insulin Aspart 300 UNITS/3 ML PEN SC (07:50)
[2022-12-28] MEDS: Aspirin 325 MG TAB PO (08:23)
--- NOTE | 2022-12-28 08:56 | W.PM.DS.N ---
Date of service: 12/28/22 Time of Service: 08:58 DS: Diagnosis Discharge Diagnosis (1) Acute cerebrovascular accident (CVA) due to occlusion of right middle cerebral artery: Status: Acute (2) Acute left hemiparesis: Status: Acute (3) On deep vein thrombosis (DVT) prophylaxis: Status: Acute (4) Atrial fibrillation: Status: Chronic (5) Diabetes: Status: Chronic (6) Hypertension: Status: Chronic (7) Discharge planning issues: Status: Acute Discharge Plan Disposition Patient Disposition: Home Condition: Improving Discharge Details Reason For Visit: Rule out CVA/TIA Admit Date/Time: 12/26/22 10:27 Admit Provider: Landon Collins Attending Provider: Landon Collins [facility] Hospital Course: This is a 62 years old female with a medical history of atrial fibrillation, DM II and hypertension who presented to the ED at [facility] on 12/26 with left sided arm weakness starting on 12/25 at 19:30 with added left sided leg weakness developing this morning after she woke up. In the ED she was found to have a positive pronator drift but was outside of the window for thrombolytic. Her head CT and CTA neck showed no bleed and no acute lesions, the radiologist consulted by the ED physician found no large vessel occlusion and recommended non-contrast MRI of the brain, which was ordered. The findings were consistent small area of acute non-hemorrhagic infarct in the right parietal lobe with an embolic event to a distal right MCA branch. Area of restricted diffusion at this level measured approximately 7 x 5 mm; without significant mass effect at the time. Lab values in the ED were unremarkable except for a glucose of 316, urine ketones 15. The patient received a total of 324 mg of oral aspirin. The hospitalist was contacted and the patient was admitted for evaluation left-sided hemiparesis, CVA. During her stay, the patient received Aspirin 325, Atorvastatin, telemetry monitoring. We initiated a neurology consultation with Dr. Harris with the following recommendations: telemetry with 30 day extended director of cardiac rehabilitation at discharge, hemoglobin A1C level, lipid panel, aspirin 325mg orally daily. On 01/02/23, the patient will stop Aspirin and start Apixaban 5mg orally twice a day. The provider also discussed adverse drug reactions, bleeding monitoring and trauma precautions with the patient. The patient will have a follow-up in the neurology clinic in 6-8 week. Permissive hypertension was recommended the patient?s blood pressure remained 114/79 to 148/81.The patient was on telemetry and remains in sinus rhythm HR 61 to 106.A1C was over 13, Triglycerides 167, total cholesterol 294, LDL 191 and LDH 70. The patient received insulin aspart as per a sensitive sliding scale to mange her blood surgars in the hospital. We considered metformin but she could not tolerate this on a previous trial due to gastrointestinal side effect as per patient report. We will increase her jardiance to 25 mg from the 10 mg dose that she usually takes at home. The patient has an appointment on the 12/30/22 with her PCP for further management of her conditions, including her diabetes. Physical therapy worked with the patient and did not recommend home follow-up, as the patient stroke symptoms resolved. On the day of discharge, the patient has no further weakness in her left extremities on exam. The patient will continue aspirin 325 mg oral until the 01/02/2023, then start taking Apixaban 5 mg orally twice a day on 01/02/2023. The patient will continue atorvastatin 80 mg orally daily in the afternoon to reduce the risk of secondary stroke. Follow-ups with primary care within 1-2 weeks and neurology are required. Home Meds and New Rx's Prescriptions: New Eliquis 5 mg tablet 5 mg PO BID MDD Start on 01/02/2023 Qty: 60 0RF aspirin 325 mg Tablet 325 mg PO DAILY Qty: 30 0RF atorvastatin 40 mg Tablet 80 mg PO QPM Qty: 60 0RF Jardiance 25 mg tablet 25 mg PO DAILY Qty: 30 0RF Continued venlafaxine 225 mg tablet extended release 24hr 225 mg PO DAILY Discontinued Jardiance 10 mg tablet 10 mg PO DAILY Discharge Instructions Stand Alone Forms: Nursing Discharge Form Referrals: Storm Martinez [ NON-[facility] STAFF PHYSICIAN] - (Please call Friday to make a follow up appointment in 1-2 weeks. ) Dariela Garcia MD [ [facility] STAFF PHYSICIAN] - 02/03/23 9:00 am (This is a 62 years old female with a medical history of atrial fibrillation, DM II and hypertension who presented to the ED at [facility] on 12/26 with left sided arm weakness starting on 11/08 at 19:30 with added left sided leg weakness developing this morning after she woke up. In the ED she was found to have a positive pronator drift but was outside of the window for thrombolytic. Her head CT and CTA neck showed no bleed and no acute lesions, the radiologist consulted by the ED physician found no large vessel occlusion and recommended non-contrast MRI of the brain, which was ordered. The findings were consistent small area of acute non-hemorrhagic infarct in the right parietal lobe with an embolic event to a distal right MCA branch. Area of restricted diffusion at this level measured approximately 7 x 5 mm; without significant mass effect at the time. During her stay, the patient received Aspirin 325, Atorvastatin, telemetry monitoring. We initiated a neurology consultation with Dr. Harris with the following recommendations: telemetry with 30 day extended director of cardiac rehabilitation at discharge, hemoglobin A1C level, lipid panel, aspirin 325mg orally daily. On 01/02/23, the patient will stop Aspirin and start Apixaban 5mg orally twice a day. The provider also discussed adverse drug reactions, bleeding monitoring and trauma precautions with the patient. The patient will have a follow-up in the neurology clinic in 6-8 week. Permissive hypertension was recommended the patient?s blood pressure remained 114/79 to 148/81.The patient was on telemetry and remains in sinus rhythm HR 61 to 106.) Activity:: Activity as Tolerated Equipment/Supplies:: No Equipment Needed Diet:: Diabetes consistent/ heart healthy Discharge Orders Discharge Orders: Discharge Order (Routine); Ordered 12/28/22 Ordered By: Rosanna Quinones DS: Summary Time Spent with Patient providing and/or coordinating discharge services: Greater than 30 minutes Status at Discharge Functional status at discharge: bed bound Overall status at discharge: patient is back to baseline Mental Status: mental status grossly normal Speech and Movement: speech and movement normal Mood: congruent mood Affect: normal affect Exam Narrative Exam Narrative: Constitutional The patient is lying in bed comfortable and cooperative during the interview. The the patient sits up at the edge of the bed The patient is well groomed without acute distress and has obese body habitus HENMT: Head is normocephalic. Facial structures with normal appearance- symmetrical, no droop in her smile Eyes: Well aligned, intact ROM Neck: Normal ROM, no meningeal signs Neuro:alert and oriented to self, person, place, time and situation. No neurological focal deficit, PERRLA 4-5 Chest:Chest is symmetrical and normal appearance Resp: Normal respiratory pattern, speaks in full sentences, unlabored breathing, clear lung bilaterally Cardio:Tele SR regular rhythm, S1, S2, no murmur, capillary refill<3 sec., bilateral radial and dorsalis pedis pulses are positive, palpable GI: Abdomen is not distended, soft and non tender, bowel sounds are present : Negative Costovertebral angle tenderness, no bladder distension Back/spine/Pelvis: No back tenderness, normal alignment Integumentary: No skin lesions or rash Extremities: strength 5/5 to left lower and upper extremities,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 Neuro Cranial Nerves: sense of smell intact, PERRL, accommodation normal, EOM intact bilaterally, no nystagmus, facial strength normal, tongue midline, gag reflex normal, hearing normal, able to rotate head bilaterally and able to elevate shoulders bilaterally Cognition: normal cognition Speech: speech normal Gait: normal gait Motor: strength 5/5 throughout (right side ) and no pronator drift Other: No further weakness to left leg and increased strength noticed to left upper ext. Psych Mental Status: mental status grossly normal Speech and Movement: speech and movement normal Mood: congruent mood Affect: normal affect DS: Data Vitals/I&O Vitals and I&O: Vital Signs Temperature 36.6 C 12/28/22 07:19 Temperature Source Tympanic 12/28/22 07:19 Pulse 76 12/28/22 07:19 Pulse Rhythm Regular 12/27/22 21:41 Respiratory Rate 18 12/28/22 07:19 Respiratory Effort Normal, Non-Labored 12/27/22 21:41 Respiratory Depth Normal 12/27/22 21:41 Respiratory Pattern Normal 12/27/22 21:41 Blood Pressure 118/79 12/28/22 07:19 Pulse Oximetry 97 12/28/22 07:19 Oxygen Delivery Method Room Air 12/28/22 07:19 Oxygen Flow Rate 0 12/28/22 07:19 Pain Level 0 12/28/22 07:32 Comment Pt. denies pain at this time. 12/28/22 07:32 Intake & Output 12/27/22 12/27/22 12/28/22 11:59 23:59 11:59 Intake Total 980 / 980 275 / 275 Balance / 275 / 275 Intake: Oral / 275 / 275 Other: Urine Appearance Clear Clear Comment pt voiding independently in the toilet Stool Size Moderate Stool Characteristics Formed Voiding Methods Toilet Toilet PFSH All Active Problems (Updated 12/26/22 @ 21:02 by Dariela Garcia MD) Stroke due to embolism of middle cerebral artery (Acute) Diabetes (Chronic) Discharge planning issues (Acute) Hypertension (Chronic) Atrial fibrillation (Chronic) On deep vein thrombosis (DVT) prophylaxis (Acute) Acute cerebrovascular accident (CVA) due to occlusion of right middle cerebral artery (Acute) Acute left hemiparesis (Acute) Medical History (Updated 12/26/22 @ 21:02 by Dariela Garcia MD) Depression Insomnia Hyperlipemia Family History (Updated 12/26/22 @ 21:02 by Dariela Garcia MD) Other Adopted Social History Smoking/Tobacco Use Status: Never Smoking risk assessment performed?: Yes Drug use: Never Housing: house Additional Social history: see downtime paperwork Time Spent with Patient Time Spent with Patient: >85 minutes Time was spent: preparing to see the patient(eg.review tests), ordering medications,tests, procedures, referring, communicating with other health health care assistant, indepentently interpreting results, counseling the patient and care coordination
[2022-12-28 10:43] LABS: Abs Immature Grans 0.03 10^3/uL (0.0-0.06); Absolute Basophil Count 0.05 10^3/uL (0.0-0.2); Absolute Eosinophil Count 0.08 10^3/uL (0.0-0.7); Absolute Lymphocyte Count 1.77 10^3/uL (1.2-3.4); Absolute Monocyte Count 0.42 10^3/uL (0.1-0.8); Absolute Neutrophil Count 4.41 10^3/uL (1.2-6.7); Basophils % 0.7; Eosinophils % 1.2; HCT 45.2 % (36.0-46.0); HGB 15.2 g/dL (11.2-15.7); Immature Grans % 0.4; Lymphocytes % 26.2; MCH 30.6 pg (27.0-33.0); MCHC 33.6 % (32.0-36.0); MCV 91 fL (80-95); Monocytes % 6.2; Neutrophils % 65.3; Platelet Count 327 10^3/uL (130-400); RBC 4.97 10^6/uL (3.93-5.22); RDW 12.5 % (11.7-14.6); WBC 6.76 10^3/uL (4.4-10.8)
[2022-12-28 10:58] LABS: Anion Gap 13.8 mmol/L (3-11); BUN 16 mg/dL (7-18); CO2 22.2 mmol/L (21.0-32.0); CREATININE 0.9 mg/dL (0.55-1.02); Calcium 9.4 mg/dL (8.5-10.1); Chloride 97 mmol/L (98-107); Estimated GFR 72.73 (mL/min/1.73m2); Glucose 432 mg/dL (74-106); Magnesium 2.1 mg/dL (1.8-2.4); Potassium 4.5 mmol/L (3.5-5.1); Sodium 133 mmol/L (136-145)
--- NOTE | 2022-12-28 14:52 | PDOC.CMDIS ---
Date of service: 12/28/22 Time of Service: 14:52 LACE Index Scoring Tool Questions: Length of Stay (in days): 2 Was the patient admitted via the E.D.?: Yes E.D. Visits: 0 Answers: Total Score: 5 Risk of Readmission: Low Risk Care Management Discharge Plan Reason for Hospitalization: CVA Discharge Plan: Camelia will be discharged home with no new services. She will follow up with neurology and cardiology and establish with a new PCP. She will transport home with her via private vehicle. Patient/Family Education Needs: Review of discharge instructions, activity, limitations, follow up plan, discuss Ask Me Three
== END 2022-12-28 12:26 | disposition home or self-care (01) ==
LOC: ER 10:42 → MS 13:15
PROVIDERS: Nurse Practitioner Acute Care; Admitting Provider Internal Medicine; Emergency Provider Emergency Medicine Emergency Medical Services; Visit Provider Internal Medicine
DX: I63.411 Cerebral infarction due to embolism of right middle cerebral artery; I48.91 Unspecified atrial fibrillation; G81.94 Hemiplegia, unspecified affecting left nondominant side; E78.5 Hyperlipidemia, unspecified; I10 Essential (primary) hypertension; G47.00 Insomnia, unspecified; F32.A Depression, unspecified; E11.9 Type 2 diabetes mellitus without complications; Z79.899 Other long term (current) drug therapy; Z79.84 Long term (current) use of oral hypoglycemic drugs; Z79.82 Long term (current) use of aspirin
CPT/HCPCS: 00123; 36415; 70496; 70498; 80048; 80061; 80307; 87637; 93005; 96372; 97110; 97161; 99291; J1650; 70551; 80320; 81003; 83036; 83735; 84484; 85025; 85610; 85730; 93010; 93306; 99223; 99232; 99239; G0378

== ENCOUNTER 2022-12-28 10:53 | Outpatient (RCR) | payer BC, SELFPAY | END 2023-01-16 23:59 | disposition home or self-care (01) | LOC: RT 10:53 | PROVIDERS: Visit Provider Psychiatry & Neurology Neurology | DX: G45.9 Transient cerebral ischemic attack, unspecified (principal) | CPT/HCPCS: 93270 ==

== ENCOUNTER 2023-02-07 08:43 | Outpatient (CLI) | payer BC, SELFPAY ==
--- NOTE | 2023-02-07 09:58 | W.CARDEVENT ---
Date of service: 02/07/23 Time of Service: 09:58 Cardiac Event Recorder Referring Provider:: Thomas Indications:: Cerebral TIA Cardiac Event Note: The underlying rhythm is sinus with physiologic sinus bradycardia and sinus tachycardia. No ventricular or supraventricular ectopics noted. Triggered events do not correspond to any arrhythmias
== END 2023-02-07 08:44 | disposition home or self-care (01) ==
LOC: CARDOPNVT 08:43
PROVIDERS: Visit Provider Internal Medicine Interventional Cardiology
DX: G45.9 Transient cerebral ischemic attack, unspecified (principal); R00.0 Tachycardia, unspecified
CPT/HCPCS: 00123

== ENCOUNTER 2024-01-01 13:44 | Outpatient (RCR) | payer BC, SELFPAY | END 2024-01-17 23:59 | disposition home or self-care (01) | LOC: CR 13:44 | PROVIDERS: Visit Provider Internal Medicine Cardiovascular Disease ==